=== PATIENT | female | born 1975 | race Hispanic/Latino ===

== ENCOUNTER 2023-04-26 13:45 | Emergency (ER) | payer MEDICAID ==
[~2023-04-26] VITALS: Ht 154.9 cm; Wt 67.1 kg
[~2023-04-26 13:45] MED LIST: FLUO20TA29 PO; OXCA150T27 PO; PANT40TA54 PO; TRAZ-185 PO
[2023-04-26 15:37] LABS: BASOPHILS # (AUTO) 0.04 K/uL (0.00-0.20); BASOPHILS % (AUTO) 1.2 % (0.0-5.0); EOSINOPHILS # (AUTO) 0.02 K/uL (0.00-0.70); EOSINOPHILS % (AUTO) 0.6 % (0.0-8.0); HEMATOCRIT 42.8 % (36-48); LYMPHOCYTES # (AUTO) 1.8 K/uL (1.0-4.8); MEAN CORPUSCULAR HEMOGLOBIN 33.3 pg (27.0-33.0); MEAN CORPUSCULAR HGB CONC 32.9 g/dL (32.0-36.0); MEAN CORPUSCULAR VOLUME 101.2 fL (79-99); MONOCYTES # (AUTO) 0.4 K/uL (0.1-1.0); MONOCYTES % (AUTO) 10.7 % (3.0-13.0); NEUTROPHILS # (AUTO) 1.3 K/uL (1.8-7.7); NEUTROPHILS % (AUTO) 36.5 % (40.0-77.0); PLATELET COUNT (AUTO) 223 K/uL (130-400); RED BLOOD CELL COUNT(AUTO) 4.23 MIL/uL (4.00-5.50); WHITE BLOOD COUNT (AUTO) 3.5 K/uL (4.8-10.8)
[2023-04-26 15:52] LABS: POTASSIUM 3.7 mmol/L (3.5-5.1)
[2023-04-26 15:56] LABS: ALBUMIN 3.5 g/dL (3.5-5.0); BILIRUBIN,TOTAL 0.7 mg/dL (0.2-1.0); TOTAL PROTEIN, SERUM 7.7 g/dL (6.0-8.3)
[2023-04-26] MEDS ORDERED: METH4TAB3 PO (16:23)
[2023-04-26] MEDS ORDERED: SOLU-MEDROL 125MG VIAL IVP ONE (16:30)
[2023-04-26 16:57] VITALS: BP 109/57; PULSE 84; RESP 16; O2SAT 97
== END 2023-04-26 16:59 | disposition home or self-care (01) ==
LOC: EDBD 13:45 → EDH 13:45
DX: S29.011A Strain of muscle and tendon of front wall of thorax, initial encounter (principal); Q90.9 Down syndrome, unspecified; E03.9 Hypothyroidism, unspecified; Z79.52 Long term (current) use of systemic steroids; Z79.899 Other long term (current) drug therapy; X58.XXXA Exposure to other specified factors, initial encounter; Y93.89 Activity, other specified; Y92.89 Other specified places as the place of occurrence of the external cause; Y99.8 Other external cause status
CPT/HCPCS: 99285; 96374; 71045; 84484; 80053; 85025; 36415; 93005; J2930